=== PATIENT | female | born 1945 | race Caucasian/White ===

== ENCOUNTER 2019-01-19 11:13 | Inpatient (IN) | payer MEDICARE, BC ==
[~2019-01-19] VITALS: Ht 160 cm; Wt 86.2 kg
--- NOTE | 2019-01-19 11:15 | NUR ---
[employer] at the bedside for report.
--- NOTE | 2019-01-19 11:44 | NUR ---
Pt out of ER for CT.
--- NOTE | 2019-01-19 12:06 | NUR ---
Pt back from Ct, states her knee pain is 3/10 and not wanting medication at this time.
--- NOTE | 2019-01-19 14:26 | NUR ---
Per Annia Ndiaye, social worker assistant speaking to pt for plan of care.
--- NOTE | 2019-01-19 14:59 | NUR ---
Per Md request, pt attempted to use crutches, but unable to bear weight on the LT knee.
[2019-01-19] MEDS ORDERED: HYDROCODONE/APAP 10-325 MG TABLET PO ONE (15:15)
[2019-01-19] MEDS ORDERED: HYDROCODONE/APAP 10-325 MG TABLET ONE (15:17)
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
--- NOTE | 2019-01-19 16:15 | NUR ---
Pt states [place] effective, attempt to stand up w/ walker assisst, but unable. Pt will be admitted to M/S bed per Dr Subramanian.
[2019-01-19] MEDS ORDERED: ASPI81TA31 PO (17:03)
[2019-01-19] MEDS ORDERED: LISI1TAB11 PO (17:03)
[2019-01-19] MEDS ORDERED: SIMV20TA6 PO (17:03)
[2019-01-19] MEDS ORDERED: METF-440 PO (17:03)
[2019-01-19] MEDS ORDERED: LEVOTHYROXINE PO (17:03)
[2019-01-19 18:41] VITALS: BP 148/55
[2019-01-19] MEDS ORDERED: ONDANSETRON 4 MG/2 ML VIAL IV PRN (19:45)
[2019-01-19] MEDS ORDERED: ACETAMINOPHEN 650 MG SUPP.RECT RC PRN (19:45)
[2019-01-19 19:56] LABS: BASOPHILS # (AUTO) 0.1 K/uL (0.0-8.0); BASOPHILS % (AUTO) 0.6 % (0.0-2.0); EOSINOPHILS # (AUTO) 0.1 K/uL (0.0-0.7); EOSINOPHILS % (AUTO) 1.2 % (0.0-7.0); HEMATOCRIT 35.2 % (31.2-41.9); HEMOGLOBIN 11.6 g/dL (10.9-14.3); LYMPHOCYTES # (AUTO) 0.8 K/uL (20.0-40.0); MEAN CORPUSCULAR HEMOGLOBIN 32.5 uug (24.7-32.8); MEAN CORPUSCULAR HGB CONC 33 g/dL (32.3-35.6); MEAN CORPUSCULAR VOLUME 99.1 fL (75.5-95.3); MONOCYTES # (AUTO) 0.5 K/uL (2.0-10.0); NEUTROPHILS # (AUTO) 7.6 K/uL (1.8-8.9); NEUTROPHILS % (AUTO) 84.2 % (38.5-71.5); PLATELET COUNT (AUTO) 192 K/uL (179-408); RED BLOOD CELL COUNT(AUTO) 3.55 MIL/uL (3.63-4.92)
[2019-01-19] MEDS ORDERED: DEXTROSE 50% 50 ML DISP.SYRIN IV PRN (20:00)
--- NOTE | 2019-01-19 20:00 | NUR ---
RECEIVED PATIENT AWAKE IN BED. PATIENT IS A/O X4. IMMOBILIZER NOTED TO LEFT LOWER EXTREMITY. PATIENT C/O PAIN IN AFFECTED AREA. CALLED OUT TO DR. GARCIA FOR FURTHER ORDERS. IV HEPLOCK STARTED TO RIGHT FA #20 GAUGE. CALL LIGHT IN REACH. ALL NEEDS ATTENDED. WILL CONTINUE TO MONITOR.
[2019-01-19 20:05] LABS: CARBON DIOXIDE 22 mmol/L (21-32); CHLORIDE 104 mmol/L (98-107); CREATININE 1.3 mg/dL (0.6-1.3); GLUCOSE 128 mg/dL (74-106); POTASSIUM 5.1 mmol/L (3.5-5.1); UREA NITROGEN, BLOOD 27 mg/dL (7-18)
[2019-01-19 20:11] LABS: ALANINE AMINOTRANSFERASE 36 U/L (14-59); ALKALINE PHOSPHATASE 84 U/L (50-136); ASPARTATE AMINOTRANSFERASE 28 U/L (15-37); BILIRUBIN,TOTAL 0.4 mg/dL (0.2-1.0); CREATINE KINASE, TOTAL 95 U/L (26-192); MAGNESIUM 1.8 mg/dL (1.8-2.4); TOTAL PROTEIN, SERUM 7.9 g/dL (6.4-8.2)
--- NOTE | 2019-01-19 20:15 | NUR ---
PATIENT GIVEN DILAUDID 0.5MG IV PER RN. WILL CONTINUE TO MONITOR.
[2019-01-19] MEDS: HYDROMORPHONE 1 MG/1 ML DISP.SYRIN IV PRN (20:16)
[2019-01-19] MEDS ORDERED: ENALAPRILAT DIHYDRATE 1.25 MG/1 ML VIAL IV PRN (20:45)
[2019-01-19] MEDS: IV D5 1/2 NS 1000 ML 1,000 ML IV PRN (20:54)
[2019-01-19 22:00] VITALS: BP 160/57
[2019-01-19 22:34] VITALS: BP 138/57
[2019-01-19] MEDS: BLOOD SUGAR DIAGNOSTIC 1 EACH STRIP VI SCH (23:27)
[2019-01-19] MEDS: INSULIN REGULAR, HUMAN 300 UNIT/3 ML VIAL SQ PRN (23:28)
[2019-01-20 00:15] VITALS: BP 148/67
[2019-01-20] MEDS: HYDROMORPHONE 1 MG/1 ML DISP.SYRIN IV PRN ×3 (00:23→21:14)
[2019-01-20] MEDS ORDERED: HYDROMORPHONE 2 MG/1 ML DISP.SYRIN IV PRN ×3 (04:36→19:30)
[2019-01-20] MEDS: INSULIN REGULAR, HUMAN 300 UNIT/3 ML VIAL SQ PRN ×3 (05:51→16:46)
[2019-01-20] MEDS: BLOOD SUGAR DIAGNOSTIC 1 EACH STRIP VI SCH ×4 (05:51→21:07)
[2019-01-20 05:59] VITALS: BP 156/71
[2019-01-20 06:37] LABS: BASOPHILS % (AUTO) 0.5 % (0.0-2.0); EOSINOPHILS # (AUTO) 0.1 K/uL (0.0-0.7); EOSINOPHILS % (AUTO) 1.2 % (0.0-7.0); HEMATOCRIT 32.8 % (31.2-41.9); LYMPHOCYTES % (AUTO) 13.9 % (20.5-51.5); MEAN CORPUSCULAR HEMOGLOBIN 33.2 uug (24.7-32.8); MEAN CORPUSCULAR HGB CONC 34 g/dL (32.3-35.6); MEAN CORPUSCULAR VOLUME 99.1 fL (75.5-95.3); MONOCYTES # (AUTO) 0.7 K/uL (2.0-10.0); NEUTROPHILS # (AUTO) 5.2 K/uL (1.8-8.9); NEUTROPHILS % (AUTO) 74.4 % (38.5-71.5); PLATELET COUNT (AUTO) 185 K/uL (179-408); RED BLOOD CELL COUNT(AUTO) 3.31 MIL/uL (3.63-4.92)
--- NOTE | 2019-01-20 06:48 | NUR ---
PATIENT AWAKE IN BED. SLEPT AT VERY SMALL INTERVALS. C/O MILD PAIN. DENIES NEED FOR PAIN MEDICATION AT THIS TIME. VSS. IVF INFUSING WELL. ON TELE SR. CALL LIGHT IN REACH. ALL NEEDS ATTENDED. WILL CONTINUE TO MONITOR AND ASSESS.
[2019-01-20 06:57] LABS: THYROID STIMULATING HORMONE 1.104 mIU/mL (0.358-3.740)
[2019-01-20 06:59] LABS: ALANINE AMINOTRANSFERASE 39 U/L (14-59); ALKALINE PHOSPHATASE 78 U/L (50-136); ASPARTATE AMINOTRANSFERASE 36 U/L (15-37); BILIRUBIN,TOTAL 0.5 mg/dL (0.2-1.0); CARBON DIOXIDE 26 mmol/L (21-32); CHLORIDE 104 mmol/L (98-107); CREATININE 1.3 mg/dL (0.6-1.3); GLUCOSE 148 mg/dL (74-106); MAGNESIUM 1.9 mg/dL (1.8-2.4); PHOSPHOROUS 4.5 mg/dL (2.5-4.9); TOTAL PROTEIN, SERUM 7.6 g/dL (6.4-8.2); UREA NITROGEN, BLOOD 29 mg/dL (7-18)
[2019-01-20 07:20] LABS: CHOLESTEROL 166 mg/dL (<200); HDL CHOLESTEROL 108 mg/dL (40-60); TRIGLYCERIDES 54 MG/DL (30-150)
--- NOTE | 2019-01-20 07:48 | NUR ---
RECEIVED PATIENT IN BED AWAKE ALERT AND ORIENTED WORRIED OF HER DOG AND CAT REASSURED HER THAT I WILL INFORM THE STOCK ROOM MANAGER TO LOOK INTO THIS FOR HER REMAIN NPO AND ON IVF ORDERED AWAITING FOR ORTHO DR BURRIS TO SEE AND EVALUATE PATIENT FOR POSSIBLE SURGERY TODAY CALL LIGHTS AND PERSONAL BELONGINGS ARE PLACED WITHIN [employer] REACH MADE COMFORTABLE AND WILL CONTINUE TO OBSERVE AND PROVIDE SAFE AND THERAPEUTIC ENVIRONMENT AT ALL TIMES
[2019-01-20] MEDS: PANTOPRAZOLE SODIUM 40 MG VIAL IV SCH (08:15)
[2019-01-20] MEDS: HYDROMORPHONE 2 MG/1 ML DISP.SYRIN IV PRN ×3 (09:26→16:32)
--- NOTE | 2019-01-20 10:00 | NUR ---
SPOKE WITH PATIENT REGARDING HER PAIN LEVEL STATED THE PAIN HAS EASED A LOTWILL CONTINUE TO OBSERVE
[2019-01-20] MEDS: IV D5 1/2 NS 1000 ML 1,000 ML IV PRN (10:31)
[2019-01-20] MEDS: IV NS 1000 ML 1,000 ML IV PRN (11:57)
[2019-01-20 12:10] VITALS: BP 161/64
[2019-01-20] MEDS ORDERED: DEXTROSE 50% 50 ML DISP.SYRIN IV PRN (12:30)
[2019-01-20] MEDS: HYDROCHLOROTHIAZIDE 12.5 MG CAPSULE PO SCH ×2 (13:01→21:00)
[2019-01-20] MEDS: LISINOPRIL 20 MG TABLET PO SCH ×2 (13:01→21:00)
[2019-01-20 16:30] VITALS: BP 108/51
[2019-01-20] MEDS ORDERED: Medication Not On Formulary EA (Lisinopril/HCTZ (Lisinopril-Hctz 20-12.5 Mg Tab) 1 TAB) PO SCH (17:00)
--- NOTE | 2019-01-20 19:25 | NUR ---
RECEIVED PT AWAKE, ALERT, ORIENTEDX4. PT SHOWS NO SIGNS OF ACUTE DISTRESS. IV INTACT AND PATENT. PT HAS LEG BRACE IN PLACE WILL CONTINUE TO MONITOR.
[2019-01-20 19:33] VITALS: BP 154/67
[2019-01-20] MEDS: SIMVASTATIN 20 MG TABLET PO SCH (21:00)
[2019-01-21] MEDS: HYDROMORPHONE 1 MG/1 ML DISP.SYRIN IV PRN (00:55)
[2019-01-21] MEDS: IV NS 1000 ML 1,000 ML IV PRN (01:01)
[2019-01-21 03:36] VITALS: BP 159/63
[2019-01-21] MEDS: LEVOTHYROXINE SODIUM 25 MCG TABLET PO SCH (06:06)
[2019-01-21 06:40] LABS: BASOPHILS % (AUTO) 0.5 % (0.0-2.0); EOSINOPHILS # (AUTO) 0.1 K/uL (0.0-0.7); EOSINOPHILS % (AUTO) 1.5 % (0.0-7.0); HEMATOCRIT 32.2 % (31.2-41.9); HEMOGLOBIN 10.7 g/dL (10.9-14.3); LYMPHOCYTES # (AUTO) 0.8 K/uL (20.0-40.0); LYMPHOCYTES % (AUTO) 11.3 % (20.5-51.5); MEAN CORPUSCULAR HEMOGLOBIN 33.3 uug (24.7-32.8); MEAN CORPUSCULAR HGB CONC 33 g/dL (32.3-35.6); MEAN CORPUSCULAR VOLUME 99.9 fL (75.5-95.3); MONOCYTES # (AUTO) 0.8 K/uL (2.0-10.0); MONOCYTES % (AUTO) 10.5 % (0.0-11.0); NEUTROPHILS # (AUTO) 5.5 K/uL (1.8-8.9); NEUTROPHILS % (AUTO) 76.2 % (38.5-71.5); PLATELET COUNT (AUTO) 163 K/uL (179-408); RED BLOOD CELL COUNT(AUTO) 3.22 MIL/uL (3.63-4.92); WHITE BLOOD COUNT (AUTO) 7.2 K/uL (3.8-11.8)
--- NOTE | 2019-01-21 06:42 | NUR ---
PT SLEPT THROUGHOUT THE SHIFT . PT SHOWS NO SIGNS OF ACUTE DISTRESS. IV INTACT . PRESCRIBED MEDICATION GIVEN AND PT TOLERATED IT WELL.PT GIVEN DILAUDID FOR 9/10 PAIN SCALE ON HER LEFT LEG AT 2114H AND 0055H. PT TOLERATED IT WELL.SAFETY AND COMFORT PROVIDED. ALL NEEDS ARE MET. WILL ENDORSE ACCORDINGLY TO INCOMING NURSE FOR CONTINUITY OF CARE.
[2019-01-21 06:44] LABS: CARBON DIOXIDE 26 mmol/L (21-32); CHLORIDE 105 mmol/L (98-107); CREATININE 1.3 mg/dL (0.6-1.3); GLUCOSE 123 mg/dL (74-106); POTASSIUM 5.1 mmol/L (3.5-5.1); UREA NITROGEN, BLOOD 20 mg/dL (7-18)
[2019-01-21] MEDS: BLOOD SUGAR DIAGNOSTIC 1 EACH STRIP VI SCH ×4 (06:55→21:18)
[2019-01-21] MEDS: INSULIN REGULAR, HUMAN 300 UNIT/3 ML VIAL SQ PRN ×2 (08:32→16:46)
[2019-01-21] MEDS: HYDROCHLOROTHIAZIDE 12.5 MG CAPSULE PO SCH ×2 (08:32→21:18)
[2019-01-21] MEDS: LISINOPRIL 20 MG TABLET PO SCH ×2 (08:32→21:18)
[2019-01-21] MEDS: ASPIRIN 81 MG TAB.CHEW PO SCH (08:32)
[2019-01-21] MEDS: PANTOPRAZOLE SODIUM 40 MG VIAL IV SCH (08:37)
[2019-01-21 11:22] VITALS: BP 162/69
[2019-01-21 15:15] VITALS: BP 140/74
[2019-01-21 19:18] VITALS: BP 155/55
--- NOTE | 2019-01-21 19:25 | NUR ---
RECEIVED PT AWAKE, ALERT AND ORIENTED X4. PT SHOWS NO SIGNS OF ACUTE DISTRESS. PT IV INTACT AND PATENT. SAFETY AND COMFORT PROVIDED. WILL CONTINUE TO MONITOR.
[2019-01-21] MEDS: SIMVASTATIN 20 MG TABLET PO SCH (21:19)
[2019-01-22 03:23] VITALS: BP 164/73
[2019-01-22] MEDS: LEVOTHYROXINE SODIUM 25 MCG TABLET PO SCH (06:05)
--- NOTE | 2019-01-22 06:07 | NUR ---
PT SLEPT THROUGHOUT THE SHIFT. IV INTACT. PT SHOWS NO SIGNS OF ACUTE DISTRESS. PRESCRIBED MEDICATION GIVEN AND PT TOLERATED IT WELL PT REFUSED HER PROTONIX MEDICATION. SAFETY AND COMFORT PROVIDED. WILL ENDORSE ACCORDINGLY TO INCOMING NURSE FOR CONTINUITY OF CARE.
[2019-01-22] MEDS: BLOOD SUGAR DIAGNOSTIC 1 EACH STRIP VI SCH ×2 (06:34→10:51)
[2019-01-22 06:43] LABS: BASOPHILS % (AUTO) 0.5 % (0.0-2.0); EOSINOPHILS # (AUTO) 0.1 K/uL (0.0-0.7); EOSINOPHILS % (AUTO) 1.7 % (0.0-7.0); HEMATOCRIT 31.1 % (31.2-41.9); HEMOGLOBIN 10.4 g/dL (10.9-14.3); LYMPHOCYTES # (AUTO) 0.8 K/uL (20.0-40.0); LYMPHOCYTES % (AUTO) 10.6 % (20.5-51.5); MEAN CORPUSCULAR HEMOGLOBIN 33.1 uug (24.7-32.8); MEAN CORPUSCULAR HGB CONC 33 g/dL (32.3-35.6); MEAN CORPUSCULAR VOLUME 99.2 fL (75.5-95.3); MONOCYTES # (AUTO) 0.6 K/uL (2.0-10.0); MONOCYTES % (AUTO) 8.6 % (0.0-11.0); NEUTROPHILS # (AUTO) 5.9 K/uL (1.8-8.9); NEUTROPHILS % (AUTO) 78.6 % (38.5-71.5); PLATELET COUNT (AUTO) 176 K/uL (179-408); RED BLOOD CELL COUNT(AUTO) 3.13 MIL/uL (3.63-4.92); WHITE BLOOD COUNT (AUTO) 7.5 K/uL (3.8-11.8)
[2019-01-22 06:46] LABS: CARBON DIOXIDE 25 mmol/L (21-32); CHLORIDE 106 mmol/L (98-107); CREATININE 1.3 mg/dL (0.6-1.3); GLUCOSE 123 mg/dL (74-106); POTASSIUM 4.4 mmol/L (3.5-5.1); UREA NITROGEN, BLOOD 23 mg/dL (7-18)
[2019-01-22] MEDS ORDERED: PANTOPRAZOLE SODIUM 40 MG TABLET.DR PO SCH (07:00)
[2019-01-22] MEDS: HYDROCHLOROTHIAZIDE 12.5 MG CAPSULE PO SCH (08:14)
[2019-01-22] MEDS: ASPIRIN 81 MG TAB.CHEW PO SCH (08:14)
[2019-01-22] MEDS: LISINOPRIL 20 MG TABLET PO SCH (08:14)
[2019-01-22] MEDS ORDERED: PANT40TA2 PO (10:52)
[2019-01-22] MEDS: INSULIN REGULAR, HUMAN 300 UNIT/3 ML VIAL SQ PRN (11:02)
[2019-01-22 11:40] VITALS: BP 129/62
--- NOTE | 2019-01-22 15:26 | NUR ---
D/C ORDERS RECEIVED NOTED AND CARRIED OUT,D/C HEPLOCK PER MD ORDERS.D/C INSTRUCTION AND RN REPORT GIVEN TO THE PT,AND SENIOR LIVING,PT LEFT THE FACILITY VIA AMBULANCES IN STABLE CONDITION
== END 2019-01-22 15:30 | DRG 542 ==
LOC: ER 11:14 → MEDSURG3 17:15 → TELE3 20:45 → MEDSURG3 01-20 12:42
PROVIDERS: ADMIT Internal Medicine; ATTEND Internal Medicine
PROC: 2W3MX1Z Immobilization of Left Lower Extremity using Splint (ICD-10-PCS; principal; 2019-01-19)
DX: M80.062A Age-related osteoporosis with current pathological fracture, left lower leg, initial encounter for fracture (principal); N17.0 Acute kidney failure with tubular necrosis; M25.062 Hemarthrosis, left knee; E78.5 Hyperlipidemia, unspecified; E66.9 Obesity, unspecified; Z68.33 Body mass index [BMI] 33.0-33.9, adult; Z87.891 Personal history of nicotine dependence; Z86.010 Personal history of colon polyps; Z79.84 Long term (current) use of oral hypoglycemic drugs; Z79.82 Long term (current) use of aspirin; M71.22 Synovial cyst of popliteal space [Baker], left knee; M17.12 Unilateral primary osteoarthritis, left knee; E03.9 Hypothyroidism, unspecified; E11.9 Type 2 diabetes mellitus without complications; W18.39XA Other fall on same level, initial encounter; Y93.K1 Activity, walking an animal; Y92.410 Unspecified street and highway as the place of occurrence of the external cause; Y99.8 Other external cause status; D75.89 Other specified diseases of blood and blood-forming organs; I10 Essential (primary) hypertension
CPT/HCPCS: 36415; 70030-TC; 71045; 73560; 73700; 83735; 84100; 84443; 85025; 85610; 85730; 93005; 97112; 97165; 97530; A4663; C9113; G0378; J1170; J1815; J3490; J7030